=== PATIENT | female | born 1935 | race Caucasian/White ===

== ENCOUNTER 2019-02-24 13:35 | Inpatient (IN) | payer MEDICARE, OTHER ==
[2019-02-24] MEDS ORDERED: SODIUM CHLORIDE 0.9% 1,000 ML IV STA (14:45)
--- NOTE | 2019-02-24 14:49 | ED ---
General Adult HPI - General Chief complaint: Fall Stated complaint: Weakness Time Seen by Provider: 02/24/19 14:05 Source: patient, family, RN notes reviewed Mode of arrival: EMS Limitations: no limitations - History of Present Illness Initial comments: Patient is a pleasant 83-year-old female presenting to the emergency Department with complaints of generalized weakness. Majority of history is taken from family. Grandson States That He Found the Patient on the floor yesterday afternoon. He helped her up and then she was able to go to the bathroom. She did not hear from her through the night. When checking on her today he found her still in the bathroom. Patient states she does not feel weak. Patient denies any injury or any complaints. Family states patient does have dementia and her mental status is normal for her. No isolated area of weakness identified. Patient did have urinary tract infection around 3 weeks ago. No cough or dyspnea or fevers. No chest or abdominal pain. - Related Data Allergies Allergy/AdvReac Type Severity Reaction Status Date / Time No Known Allergies Allergy Verified 02/24/19 15:15 Review of Systems ROS Statement: Those systems with pertinent positive or pertinent negative responses have been documented in the HPI. ROS Other: All systems not noted in ROS Statement are negative. Constitutional: Denies: fever, chills Eyes: Denies: eye pain ENT: Denies: ear pain Respiratory: Denies: cough Cardiovascular: Denies: chest pain Endocrine: Denies: polydipsia Gastrointestinal: Denies: abdominal pain, vomiting Genitourinary: Denies: dysuria Musculoskeletal: Denies: back pain Skin: Denies: rash Neurological: Reports: as per HPI Past Medical History Past Medical History: Dementia, Hypertension Smoking Status: Never smoker Past Alcohol Use History: None Reported Past Drug Use History: None Reported General Exam Limitations: no limitations General appearance: alert, in no apparent distress Head exam: Present: normocephalic Eye exam: Present: normal appearance, PERRL, EOMI. Absent: nystagmus ENT exam: Present: normal oropharynx Neck exam: Present: normal inspection. Absent: tenderness, meningismus Respiratory exam: Present: normal lung sounds bilaterally Cardiovascular Exam: Present: regular rate, normal rhythm GI/Abdominal exam: Present: soft. Absent: distended, tenderness Extremities exam: Present: normal inspection, full ROM. Absent: tenderness Neurological exam: Present: alert, CN II-XII intact Expanded Patient oriented to: Absent: place, time Speech: Present: fluid speech Cranial nerves: EOM's Intact: Normal Motor strength exam: RUE: 5, LUE: 5, RLE: 3, LLE: 3 Eye Response: (4) open spontaneously Motor Response: (6) obeys commands Verbal Response: (4) confused conversation Psychiatric exam: Present: normal affect, normal mood Skin exam: Present: normal color Course Vital Signs 02/24/19 02/24/19 13:52 16:50 Temperature 98.3 F Pulse Rate 84 85 Respiratory 16 18 Rate Blood Pressure 169/71 162/65 O2 Sat by Pulse 95 Oximetry EKG Findings - EKG Comments: EKG Findings:: Sinus rhythm at 80. Premature atrial complexes present. AZ 194. QRS 78. QT 390. QTC 449. Normal axis. Normal QRS. No acute ST change. Medical Decision Making - Medical Decision Making Patient reevaluated and resting comfortably in bed. Patient and family updated on results and plan. Case was discussed in detail with Dr. Vinson, who will admit, covering for Dr. Murillo. - Lab Data Result diagrams: 02/24/19 14:10 02/24/19 14:10 Lab Results 02/24/19 02/24/19 02/24/19 Range/Units 14:10 14:10 14:10 WBC 13.5 H (3.8-10.6) k/uL RBC 4.62 (3.80-5.40) m/uL Hgb 14.2 (11.4-16.0) gm/dL Hct 42.6 (34.0-46.0) % MCV 92.1 (80.0-100.0) fL MCH 30.8 (25.0-35.0) pg MCHC 33.4 (31.0-37.0) g/dL RDW 12.7 (11.5-15.5) % Plt Count 275 (150-450) k/uL Neutrophils % 75 % Lymphocytes % 12 % Monocytes % 11 % Eosinophils % 1 % Basophils % 0 % Neutrophils # 10.1 H (1.3-7.7) k/uL Lymphocytes # 1.6 (1.0-4.8) k/uL Monocytes # 1.5 H (0-1.0) k/uL Eosinophils # 0.1 (0-0.7) k/uL Basophils # 0.0 (0-0.2) k/uL PT 10.7 (9.0-12.0) sec INR 1.0 (<1.2) APTT 29.2 (22.0-30.0) sec Sodium 138 (137-145) mmol/L Potassium 4.1 (3.5-5.1) mmol/L Chloride 102 (98-107) mmol/L Carbon Dioxide 24 (22-30) mmol/L Anion Gap 12 mmol/L BUN 32 H (7-17) mg/dL Creatinine 0.96 (0.52-1.04) mg/dL Est GFR (CKD-EPI)AfAm 64 (>60 ml/min/1.73 sqM) Est GFR (CKD-EPI)NonAf 55 (>60 ml/min/1.73 sqM) Glucose 104 H (74-99) mg/dL Plasma Lactic Acid Richard (0.7-2.0) mmol/L Calcium 9.4 (8.4-10.2) mg/dL Phosphorus 4.3 (2.5-4.5) mg/dL Magnesium 1.9 (1.6-2.3) mg/dL Total Bilirubin 1.4 H (0.2-1.3) mg/dL AST 31 (14-36) U/L ALT 13 (4-34) U/L Alkaline Phosphatase 96 (38-126) U/L Creatine Kinase 246 H (30-135) U/L Troponin I (0.000-0.034) ng/mL Total Protein 7.2 (6.3-8.2) g/dL Albumin 3.7 (3.5-5.0) g/dL Urine Color Urine Appearance (Clear) Urine pH (5.0-8.0) Ur Specific [place] (1.001-1.035) Urine Protein (Negative) Urine Glucose (UA) (Negative) Urine Ketones (Negative) Urine Blood (Negative) Urine Nitrite (Negative) Urine Bilirubin (Negative) Urine Urobilinogen (<2.0) mg/dL Ur Leukocyte Esterase (Negative) Urine RBC (0-5) /hpf Urine WBC (0-5) /hpf Ur Squamous Epith Cells (0-4) /hpf Amorphous Sediment (None) /hpf Urine Bacteria (None) /hpf Urine Mucus (None) /hpf 02/24/19 02/24/19 02/24/19 Range/Units 14:10 15:05 15:37 WBC (3.8-10.6) k/uL RBC (3.80-5.40) m/uL Hgb (11.4-16.0) gm/dL Hct (34.0-46.0) % MCV (80.0-100.0) fL MCH (25.0-35.0) pg MCHC (31.0-37.0) g/dL RDW (11.5-15.5) % Plt Count (150-450) k/uL Neutrophils % % Lymphocytes % % Monocytes % % Eosinophils % % Basophils % % Neutrophils # (1.3-7.7) k/uL Lymphocytes # (1.0-4.8) k/uL Monocytes # (0-1.0) k/uL Eosinophils # (0-0.7) k/uL Basophils # (0-0.2) k/uL PT (9.0-12.0) sec INR (<1.2) APTT (22.0-30.0) sec Sodium (137-145) mmol/L Potassium (3.5-5.1) mmol/L Chloride (98-107) mmol/L Carbon Dioxide (22-30) mmol/L Anion Gap mmol/L BUN (7-17) mg/dL Creatinine (0.52-1.04) mg/dL Est GFR (CKD-EPI)AfAm (>60 ml/min/1.73 sqM) Est GFR (CKD-EPI)NonAf (>60 ml/min/1.73 sqM) Glucose (74-99) mg/dL Plasma Lactic Acid Richard 1.3 (0.7-2.0) mmol/L Calcium (8.4-10.2) mg/dL Phosphorus (2.5-4.5) mg/dL Magnesium (1.6-2.3) mg/dL Total Bilirubin (0.2-1.3) mg/dL AST (14-36) U/L ALT (4-34) U/L Alkaline Phosphatase (38-126) U/L Creatine Kinase (30-135) U/L Troponin I <0.012 (0.000-0.034) ng/mL Total Protein (6.3-8.2) g/dL Albumin (3.5-5.0) g/dL Urine Color Yellow Urine Appearance Turbid H (Clear) Urine pH 5.5 (5.0-8.0) Ur Specific [place] 1.017 (1.001-1.035) Urine Protein 1+ H (Negative) Urine Glucose (UA) Negative (Negative) Urine Ketones Negative (Negative) Urine Blood Moderate H (Negative) Urine Nitrite Positive H (Negative) Urine Bilirubin Negative (Negative) Urine Urobilinogen <2.0 (<2.0) mg/dL Ur Leukocyte Esterase Large H (Negative) Urine RBC 44 H (0-5) /hpf Urine WBC 103 H (0-5) /hpf Ur Squamous Epith Cells 22 H (0-4) /hpf Amorphous Sediment Rare H (None) /hpf Urine Bacteria Many H (None) /hpf Urine Mucus Occasional H (None) /hpf - Radiology Data Radiology results: report reviewed (Computed tomography scan the brain shows chronic disease and sinusitis, no acute intercranial abnormality.), image reviewed (Pelvis and pelvis x-rays show no acute process) Disposition Clinical Impression: Urinary tract infection, Dehydration, General weakness Disposition: ADMITTED IP TO THIS HOSP Is patient prescribed a controlled substance at d/c from ED?: No Referrals: Baljinder Murillo DO [Primary Care Provider] - 1-2 days Decision Time: 17:01
[2019-02-24 15:03] LABS: Basophils % (A) 0 %; Eosinophils # (A) 0.1 k/uL (0-0.7); Eosinophils % (A) 1 %; HCT 42.6 % (34.0-46.0); HGB 14.2 gm/dL (11.4-16.0); Lymphocytes # (A) 1.6 k/uL (1.0-4.8); Lymphocytes % (A) 12 %; MCH 30.8 pg (25.0-35.0); MCHC 33.4 g/dL (31.0-37.0); MCV 92.1 fL (80.0-100.0); Mean Platelet Volume 7.8; Monocytes # (A) 1.5 k/uL (0-1.0); Monocytes % (A) 11 %; Neutrophils # (A) 10.1 k/uL (1.3-7.7); Neutrophils % (A) 75 %; Platelet Count 275 k/uL (150-450); RBC 4.62 m/uL (3.80-5.40); RDW 12.7 % (11.5-15.5); WBC 13.5 k/uL (3.8-10.6)
[2019-02-24 15:12] LABS: Partial Thromboplastin Time 29.2 sec (22.0-30.0); Prothrombin Time 10.7 sec (9.0-12.0)
[2019-02-24 15:13] LABS: Albumin 3.7 g/dL (3.5-5.0); Calcium 9.4 mg/dL (8.4-10.2); Magnesium 1.9 mg/dL (1.6-2.3); Phosphorus 4.3 mg/dL (2.5-4.5); Potassium 4.1 mmol/L (3.5-5.1); Total Bilirubin 1.4 mg/dL (0.2-1.3); Total Protein 7.2 g/dL (6.3-8.2)
[2019-02-24 15:56] LABS: Amorphous Sediment,Urine Rare /hpf; Appearance,Urine Turbid (Clear); Bacteria,Urine Many /hpf; Bilirubin,Urine Negative (Negative); Blood,Urine Moderate (Negative); Color,Urine Yellow; Glucose,Urine (UA) Negative (Negative); Ketones,Urine Negative (Negative); Leukocyte Esterase,Urine Large (Negative); Mucus,Urine Occasional /hpf; Nitrite,Urine Positive (Negative); PH, Urine 5.5 (5.0-8.0); Protein,Urine 1+ (Negative); RBC,Urine 44 /hpf (0-5); Specific Gravity,Urine 1.017 (1.001-1.035); Squamous Epithelial Cell,Urine 22 /hpf (0-4); Urobilinogen,Urine <2.0 mg/dL (<2.0); WBC,Urine 103 /hpf (0-5)
--- NOTE | 2019-02-24 16:19 | CT ---
EXAMINATION TYPE: CT brain wo con DATE OF EXAM: 02/24/2019 HISTORY: Fall injury with weakness. CT DLP: 1099.4 mGycm. Automated Exposure Control for Dose Reduction was Utilized. TECHNIQUE: CT scan of the head is performed without contrast. COMPARISON: None. FINDINGS: Slightly suboptimal as there is motion artifact degradation. There is no acute intracrania l hemorrhage or midline shift identified. There is diffuse ventricular and sulcal prominence consiste nt with diffuse age-related cerebral atrophy. There is low-attenuation in the periventricular white matter consistent with chronic small vessel ischemic change. Vascular dilatation distal internal zheng tid arteries bilaterally. Mucosal thickening and patchy opacity right sphenoid sinus and frontal sinu ses mild to moderate mucosal thickening bilateral ethmoid sinuses. Calvarium is intact. IMPRESSION: No acute intracranial hemorrhage or midline shift clearly seen. There is moderate diffu se age-related cerebral atrophy and chronic small vessel ischemic change noted. Possible acute on ch ronic paranasal sinus disease, correlate clinically.
--- NOTE | 2019-02-24 16:28 | XR ---
EXAMINATION TYPE: XR chest 2V DATE OF EXAM: 02/24/2019 COMPARISON: NONE HISTORY: Weakness. TECHNIQUE: Frontal and lateral views of the chest are obtained. FINDINGS: There is chronic parenchymal changes bilaterally without suspicious focal air space opacit y, pleural effusion, or pneumothorax seen. Basilar opacity favors chronic parenchymal change. The ca rdiac silhouette size is enlarged with atherosclerotic aorta. The osseous structures are deminerali zed. Exaggerated kyphosis is seen. IMPRESSION: Chronic changes and cardiomegaly without acute pulmonary process.
--- NOTE | 2019-02-24 16:28 | XR ---
EXAMINATION TYPE: XR pelvis AP view DATE OF EXAM: 02/24/2019 CLINICAL HISTORY: Falling injury yesterday with weakness. TECHNIQUE: A single AP view of the pelvis is obtained. COMPARISON: None. FINDINGS: There is no acute fracture/dislocation evident in the pelvis. The sacroiliac joints appea r symmetric and unremarkable. Moderate axial joint space loss both hips. Right-sided pelvic phlebolit hs and suspected vascular calcification. IMPRESSION: There is no acute displaced pelvic fracture.
[2019-02-24] MEDS ORDERED: NALOXONE 0.4 MG/ML 1 ML VIAL IV PRN (17:02)
[2019-02-24] MEDS: SODIUM CHLORIDE 0.9% 1,000 ML IV SCH (19:33)
[2019-02-24] MEDS ORDERED: ALPRAZolam 0.25 MG TAB PO PRN (21:46)
[2019-02-24] MEDS ORDERED: ACETAMINOPHEN TAB 500 MG TAB PO PRN (21:46)
[2019-02-24] MEDS ORDERED: LOSARTAN 50 MG TAB PO STA (22:27)
[2019-02-24] MEDS ORDERED: CARVEDILOL 12.5 MG TAB PO STA (22:28)
--- NOTE | 2019-02-24 22:59 | HP ---
HISTORY AND PHYSICAL CHIEF COMPLAINTS: Weakness, change in mental status and fall. HISTORY OF PRESENT ILLNESS: This 83-year-old woman with a past medical history of multiple medical problems, including dementia, hypertension, being followed by Dr. Murillo in the outpatient setting, was also being evaluated for competency. Currently the patient is noted to have multiple falls and generalized weakness. Her grandson found the patient on the floor after being there for several hours and subsequently he helped her to get up and go to the toilet, but after several hours he returned and the patient was still sitting on the toilet. The patient was taken to [facility] and admitted for further evaluation and treatment. The patient is unable to give a coherent history. The patient is confused. Most of the history is taken from my discussion with staff as well as review of the review of chart and discussion with the ER physician at this time. I also discussed the case at length with the grandson and the family at the bedside. Apparently Dr. Murillo is also following the patient closely. The patient also had a history of possible UTI with sepsis features, present on admission. PAST MEDICAL HISTORY: 1. History of hypertension. 2. History of dementia. HOME MEDICATIONS: 1. K-Dur 20 mEq p.o. daily. 2. Losartan 100 mg p.o. b.i.d. 3. Aspirin 81 mg p.o. daily. 4. Eliquis 2.5 mg b.i.d. 5. Coreg 25 mg p.o. b.i.d. ALLERGIES: NONE. FAMILY HISTORY: No history of heart disease or strokes in the family. SOCIAL HISTORY: No history of smoking. No alcohol intake. REVIEW OF SYSTEMS: Review of systems could not be taken because the patient is confused. PHYSICAL EXAMINATION: Patient is confused. Pulse 80, blood pressure 167/97, respiration 18, temperature normal, pulse ox 96% on room air. HEENT: Conjunctivae normal. Oral mucosa moist. NECK: No jugular venous distention. No carotid bruit. No lymph node enlargement. CARDIOVASCULAR SYSTEM: S1, S2 muffled. No S3. No S4. Ejection systolic murmur. RESPIRATORY SYSTEM: Breath sounds diminished at the bases. No rhonchi. No crackles. ABDOMEN: Soft, non-tender. No mass palpable. LEGS: No edema. No swelling. NERVOUS SYSTEM: Higher functions as mentioned earlier. Moves all 4 limbs. No focal motor or sensory deficit. Diffuse weakness present. LYMPHATICS: No lymph node palpable in neck, axillae or groin. JOINTS: No active deforming arthropathy. LABS: WBC 13.5. Sodium 138, potassium 4.1. Bilirubin is 1.4. UA noted. ASSESSMENT: 1. Change in mental status, possible acute metabolic encephalopathy, multifactorial. 2. Possible acute urinary tract infection with sepsis, present on admission. 3. Acute on chronic metabolic encephalopathy. 4. Weakness and fall. 5. Dementia. 6. Generalized gait dysfunction. 7. Increased white count. 8. Increased BUN. 9. Increased bilirubin. 10.History of hypertension. 11.History of dementia. 12.PACs in the EKG. 13.On Eliquis. RECOMMENDATIONS AND DISCUSSION: In this 83-year-old woman who presented with multiple complex medical issues, at this time I recommend to continue current medications, continue with symptomatic treatment. Will initiate broad-spectrum IV antibiotics. Follow the cultures. We will continue with IV fluids. The serum lactic acid is 1.3. We will continue to monitor. PT/OT evaluation. I would also recommend social worker palliative care to work on the guardianship because of the patient's possibly advanced dementia and other multiple medical issues. Once again, the prognosis is guarded. See orders for further details. Further recommendations to follow. A copy of this dictation is being forwarded to Dr. Murillo, who is the primary physician. I would recommend ECF rehab at [facility] at this time. One other family member is also working at [facility], apparently. See orders for further details. Further recommendations to follow. MMODL / IJN: [id number] /
[2019-02-25] MEDS: HYDROcodone/APAP 5-325MG 1 EACH TAB PO PRN ×2 (05:50→14:19)
[2019-02-25] MEDS: SODIUM CHLORIDE 0.9% 1,000 ML IV SCH ×2 (06:05→21:43)
[2019-02-25 06:58] LABS: Basophils % (A) 0 %; Eosinophils # (A) 0.2 k/uL (0-0.7); Eosinophils % (A) 2 %; HCT 38.5 % (34.0-46.0); HGB 12.3 gm/dL (11.4-16.0); Lymphocytes # (A) 1.8 k/uL (1.0-4.8); Lymphocytes % (A) 19 %; MCH 29.5 pg (25.0-35.0); MCHC 31.9 g/dL (31.0-37.0); MCV 92.7 fL (80.0-100.0); Mean Platelet Volume 7.6; Monocytes # (A) 1.1 k/uL (0-1.0); Monocytes % (A) 11 %; Neutrophils # (A) 6.5 k/uL (1.3-7.7); Neutrophils % (A) 66 %; Platelet Count 211 k/uL (150-450); RBC 4.16 m/uL (3.80-5.40); RDW 12.9 % (11.5-15.5); WBC 9.8 k/uL (3.8-10.6)
[2019-02-25 07:14] LABS: Calcium 8.8 mg/dL (8.4-10.2); Potassium 3.7 mmol/L (3.5-5.1)
[2019-02-25] MEDS: THIAMINE 100 MG TAB PO SCH (10:26)
[2019-02-25] MEDS: MULTIVITAMINS, THERA 1 EACH TAB PO SCH (10:26)
[2019-02-25] MEDS: HEPARIN SODIUM,PORCINE 5,000 UNIT/ML 1 ML VIAL SQ SCH ×2 (10:32→21:47)
[2019-02-25] MEDS: ASPIRIN 81 MG PO SCH (10:32)
[2019-02-25] MEDS: LOSARTAN 50 MG TAB PO SCH ×2 (10:33→21:43)
[2019-02-25] MEDS: POTASSIUM CHLORIDE ER 10 MEQ TAB.ER.PRT PO SCH (10:34)
[2019-02-25] MEDS: FOLIC ACID 1 MG TAB PO SCH (10:35)
[2019-02-25] MEDS: CARVEDILOL 12.5 MG TAB PO SCH ×2 (14:17→18:21)
[2019-02-25] MEDS ORDERED: HALOPERIDOL LACTATE 5 MG/ML 1 ML VIAL IM PRN (18:18)
--- NOTE | 2019-02-25 19:36 | PN ---
PROGRESS NOTE DATE OF SERVICE: 02/25/2019 This 83-year-old woman who was admitted with weakness and fall also had change in mental status. Patient also had significant acute UTI. The patient also had elevated WBC. The possibility of sepsis is also being considered. The patient was sitting on the toilet for a very long time, according to the family. The patient is confused. The patient is refusing some of the medications. Competency evaluation is in progress also. The patient has significant dementia. Past medical history reviewed. Review of systems could not be taken; the patient is confused. CURRENT MEDICATIONS: 1. Tylenol 500 mg q.6 p.r.n. 2. [place] 5 mg q.6 p.r.n. 3. Xanax 0.25 t.i.d. 4. Aspirin 81 mg daily. 5. Coreg 25 mg. 6. Rocephin 1 gram daily. 7. Heparin. 8. Cozaar 100 mg p.o. b.i.d. 9. Multivitamins. 10.Narcan 0.2 q.2 p.r.n. 11.K-Dur 20 mEq p.o. daily. 12.Vitamin B1 100 mg p.o. daily. PHYSICAL EXAMINATION: The patient is conscious, confused. Pulse 72, blood pressure 180/74, respirations 16, temperature 97.3, pulse ox 96% on room air. HEENT: Conjunctivae normal. Oral mucosa moist. NECK: No jugular venous distention. No carotid bruit. No lymph node enlargement. CARDIOVASCULAR SYSTEM: S1, S2 muffled. RESPIRATORY SYSTEM: Breath sounds diminished at the bases. Bilateral scattered rhonchi and crackles. ABDOMEN: Soft, obese, non-tender. LEGS: No edema. No swelling. NERVOUS SYSTEM: No focal deficit. LABS: CBC within normal limits. Sodium 138, potassium 7. UA noted. ASSESSMENT: 1. Change in mental status, possibly acute metabolic encephalopathy, multifactorial. 2. Possible acute urinary tract infection with sepsis, present on admission. 3. Acute on chronic metabolic encephalopathy. 4. Weakness and fall. 5. Dementia. 6. Generalized gait dysfunction. 7. Increased white count. 8. Increased BUN. 9. Increased bilirubin. 10.History of hypertension. 11.History of PACs on the EKG. 12.On Eliquis. RECOMMENDATIONS AND DISCUSSION: In this 83-year-old woman who presented with multiple complex medical issues, we will monitor the patient closely, continue the current medications, continue symptomatic treatment. We will initiate broad-spectrum IV antibiotics, follow the cultures. The cultures are negative so far. Otherwise, I also recommend evaluation by Psychiatry for competency evaluation. Will recommend aids social worker consultation, PT/OT evaluation, possible ECF rehab as well as determination of the legal guardianship. Once again, the prognosis is guarded. See orders for further details. Further recommendations to follow. The patient had a rash in the posterior gluteal region also. I would also recommend creatine kinase to rule out the possibility of rhabdomyolysis. MMODL / IJN: [id number] /
[2019-02-26] MEDS: HEPARIN SODIUM,PORCINE 5,000 UNIT/ML 1 ML VIAL SQ SCH ×2 (07:43→21:57)
[2019-02-26] MEDS: CARVEDILOL 12.5 MG TAB PO SCH ×2 (07:44→17:00)
[2019-02-26] MEDS: LOSARTAN 50 MG TAB PO SCH ×2 (07:44→21:56)
[2019-02-26] MEDS: POTASSIUM CHLORIDE ER 10 MEQ TAB.ER.PRT PO SCH (07:44)
[2019-02-26] MEDS: ASPIRIN 81 MG PO SCH (07:44)
[2019-02-26 09:12] LABS: Basophils % (A) 0 %; Eosinophils # (A) 0.2 k/uL (0-0.7); Eosinophils % (A) 2 %; HCT 39.8 % (34.0-46.0); HGB 13.3 gm/dL (11.4-16.0); Lymphocytes # (A) 1.4 k/uL (1.0-4.8); Lymphocytes % (A) 14 %; MCH 30.7 pg (25.0-35.0); MCHC 33.5 g/dL (31.0-37.0); MCV 91.6 fL (80.0-100.0); Mean Platelet Volume 8.1; Monocytes # (A) 0.8 k/uL (0-1.0); Monocytes % (A) 8 %; Neutrophils # (A) 7.2 k/uL (1.3-7.7); Neutrophils % (A) 73 %; Platelet Count 258 k/uL (150-450); RBC 4.34 m/uL (3.80-5.40); RDW 12.7 % (11.5-15.5); WBC 9.8 k/uL (3.8-10.6)
[2019-02-26 09:20] LABS: Calcium 9.1 mg/dL (8.4-10.2)
[2019-02-26] MEDS: SODIUM CHLORIDE 0.9% 1,000 ML IV SCH ×2 (10:41→23:10)
[2019-02-26] MEDS: MULTIVITAMINS, THERA 1 EACH TAB PO SCH (12:21)
[2019-02-26] MEDS: THIAMINE 100 MG TAB PO SCH (12:21)
[2019-02-26] MEDS: FOLIC ACID 1 MG TAB PO SCH (12:21)
--- NOTE | 2019-02-26 14:34 | P.CN ---
Psychiatric Consult - . Consult date: 02/26/19 Consult:: 02/26/19 14:20 IDENTIFYING DATA: This patient is a 83-year-old female who lives in a condo alone and has family check in on her daily, has 3 kids and is currently and retired. HISTORY OF PRESENT ILLNESS: The patient he presented to the hospital on 02/24/2019 for complaint of generalized weakness. Patient's grandson found the patient on the floor at home and allegedly help her to the bathroom however patient was not able to use the bathroom and was not able to move and was brought into the hospital. Patient has a history of dementia and UTI which was treated previously. Patient was found on blood work to have a urinary tract infection along with dehydration and elevated white blood cell count and was admitted to the medical floors. Patient had a CT of her head done on admission which showed moderate diffuse age-related cerebral atrophy and chronic small vessel changes. As per social services coordinator note claims that family is concerned about patient returning home and cannot care for herself. Psychiatry was consulted to see patient with regards to evaluation of capacity. Patient's nurse claims that patient has been somewhat restless and pulling out her IVs and having difficult time sleeping at night and continues to be confused. Patient was seen at the bedside with her granddaughter and granddaughter gave further information about patient's declining functioning in the past week and her chronic dementia for over 10 years. She states that the patient has been talking to the TV and has been much more confused in the past week and is unable to use the bathroom on her own. Patient was seen at the bedside and agreeable to speak to radio script writer. Patient was alert and oriented 1 and leave that her granddaughter was her Satinder. Patient also believed that she was in [place] at the current moment and when asked to explain further patient rambled. Patient gave many inappropriate answers to radio script writer's questions and stated that she did not know the date. Patient has a poor understanding of why she is in the hospital, stating that "I needed to get my blood pressure checked". Patient was easily distracted during the interview denies any depression or any anxiety. She claims that her sleep is "fine" and denies any pain. She claims that she has fair appetite. Patient perseverates on concepts during the interview. At this time patient denies any suicidal or homical ideations, intent or plan. Patient denies any auditory, visual hallucinations. As per granddaughter, states that patient does not use any illicit substances including cigarettes, alcohol or marijuana. PAST PSYCHIATRIC HISTORY: She has a 10 year history of dementia, has never been admitted to psychiatric hospital and denies any psychiatric outpatient follow- up. Denies any suicide attempts in the past. PAST MEDICAL HISTORY: Dementia for over 10 years, hypertension. ALLERGIES: as per EMR. CHEMICAL DEPENDENCY HISTORY: as per HPI. 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 Patient has a high school education. She is currently and retired and lives alone in a condo and has family check in on her daily. Patient has 3 kids. MENTAL STATUS EXAM: General Appearance: Patient appears to be stated age is alert, pleasant, and attempts to cooperate. Patient appears to be confused and disoriented. Patient was talking at her blankets during the interview, poor eye contact. Behavior: Patient is calmly lying in bed without any agitated behavior. Speech: Patient's speech is fluent and nonpressured. Mood/Affect: Patient reports their mood is "okay", affect is congruent and inappropriate at times. Suicidality/Homicidality: Patient denies having any suicidal or homicidal ideat ion intent or plan. Perceptions: Patient denies any auditory or visual hallucinations. Though content/process: Patient is disorganized and rambles at times, inappropriate answers to questions and is illogical. Memory and concentration: AOX1, Cannot spell "WORLD" backwards, cannot name current president, trouble identifying objects, 0 out of 3 memory recall after 5 minutes. [place] abstraction and perseverates. Poor attention span and poor judgment Judgment and insight: Chronically poor understanding of her condition and treatment, poor judgment. IMPRESSIONS: Delirium likely secondary to infection (UTI) History of Dementia PLAN: -At this time patient does NOT meet criteria for inpatient psychiatric admission. -Patient DOES NOT have decision making capacity at this time and is unable to reason through and communicate/appreciate the risks, benefits and alternatives to treatment. -Delirium precautions recommended with patient including - avoiding use of narcotics and SPECIAL INVESTIGATION UNIT INVESTIGATOR sedatives, limit anticholinergic medications when possible, frequent re-orientation, minimize use of restraints, open window shades during the day and close them at night -Would recommend the following medication changes/additions: Discontinued Xanax as patient should not be on any benzodiazepines as it will make her mental status worse. Will add Seroquel 25 mg daily at bedtime when necessary for insom naima/agitation at night. We'll also add standing order of melatonin 2 mg daily at bedtime for sleep regulation. Can continue with Haldol when necessary IM for severe agitation. -Patient's daughter is currently seeking guardianship. -Continue with possible placement at [facility] on dementia floor as patient cannot care for herself and live alone. -Continue with treatment of underlying infection to improve mental status/delirium. -Psychiatry will sign off at this point, please contact with any questions.
[2019-02-26] MEDS ORDERED: QUEtiapine 25 MG TAB PO PRN (14:35)
[2019-02-26] MEDS: HYDROcodone/APAP 5-325MG 1 EACH TAB PO PRN (17:00)
[2019-02-26] MEDS: MELATONIN 1 MG TAB PO SCH (21:56)
--- NOTE | 2019-02-27 00:15 | PN ---
PROGRESS NOTE DATE OF SERVICE: 02/26/2019 This 83-year-old woman who was admitted with change in mental status also had acute UTI. The patient is closely monitored. Psychiatry saw the patient and recommended medication adjustments. No chest pain. No palpitations. No fever. EXAM: Alert and oriented x3. Pulse 85, blood pressure 140/70, respirations 16, temperature 97.9, pulse ox 91% on room air. HEENT: Conjunctivae normal. Oral mucosa moist. NECK: No jugular venous distention. No lymph node enlargement. CARDIOVASCULAR: S1, S2. RESPIRATORY: Diminished breath sounds at the bases. No rhonchi, no crackles. ABDOMEN: Soft, nontender. LEGS: No edema, no swelling. NERVOUS SYSTEM: Diffusely weak. LABS: WBC 9.2, hemoglobin 13.3, glucose 114. UA noted and the cultures are pending at this time. ASSESSMENT: 1. Change in mental status, possible acute metabolic encephalopathy multifactorial. 2. Possible acute urinary tract infection with sepsis present on admission. 3. Acute on chronic metabolic encephalopathy. 4. Weakness and fall. 5. Dementia. 6. Generalized gait dysfunction. 7. Increased WBC. 8. Increased BUN. 9. Increased bilirubin. 10.Hypertension. 11.History of PACs in the EKG. 12.NO CODE, NO CPR, NO VENT. RECOMMENDATIONS AND DISCUSSION: This 83-year-old woman who presented with multiple complex medical issues, we will monitor the patient closely, continue the current medication, continue symptomatic treatment. Otherwise, continue the antibiotics, PT/OT evaluation, possible ECF rehab. Guarded prognosis because of multiple complex medical issues. Further recommendations to follow. MMODL / IJN: [id number] /
[2019-02-27] MEDS: CARVEDILOL 12.5 MG TAB PO SCH ×2 (05:54→17:56)
[2019-02-27] MEDS: LOSARTAN 50 MG TAB PO SCH ×2 (07:51→21:12)
[2019-02-27] MEDS: POTASSIUM CHLORIDE ER 10 MEQ TAB.ER.PRT PO SCH (07:52)
[2019-02-27] MEDS: HEPARIN SODIUM,PORCINE 5,000 UNIT/ML 1 ML VIAL SQ SCH ×2 (07:52→21:13)
[2019-02-27] MEDS: ASPIRIN 81 MG PO SCH (07:52)
[2019-02-27 08:30] LABS: Basophils % (A) 0 %; Eosinophils # (A) 0.1 k/uL (0-0.7); Eosinophils % (A) 1 %; HCT 36.8 % (34.0-46.0); HGB 12.1 gm/dL (11.4-16.0); Lymphocytes # (A) 1.6 k/uL (1.0-4.8); Lymphocytes % (A) 16 %; MCH 30.1 pg (25.0-35.0); MCHC 32.9 g/dL (31.0-37.0); MCV 91.7 fL (80.0-100.0); Mean Platelet Volume 7.6; Monocytes # (A) 0.7 k/uL (0-1.0); Monocytes % (A) 8 %; Neutrophils % (A) 73 %; Platelet Count 247 k/uL (150-450); RBC 4.01 m/uL (3.80-5.40); RDW 12.6 % (11.5-15.5); WBC 9.6 k/uL (3.8-10.6)
[2019-02-27 08:48] LABS: Calcium 8.6 mg/dL (8.4-10.2); Potassium 3.8 mmol/L (3.5-5.1)
[2019-02-27] MEDS: FOLIC ACID 1 MG TAB PO SCH (13:03)
[2019-02-27] MEDS: THIAMINE 100 MG TAB PO SCH (13:03)
[2019-02-27] MEDS: MULTIVITAMINS, THERA 1 EACH TAB PO SCH (13:03)
[2019-02-27] MEDS: SODIUM CHLORIDE 0.9% 1,000 ML IV SCH (13:03)
[2019-02-27] MEDS: DOCUSATE 100 MG CAP PO SCH (14:08)
[2019-02-27] MEDS: hydrALAZINE HCL 20 MG/ML 1 ML VIAL IVP PRN (14:51)
[2019-02-27] MEDS: amLODIPine 5 MG TAB PO SCH (17:56)
--- NOTE | 2019-02-27 18:50 | PN ---
PROGRESS NOTE DATE OF SERVICE: 02/27/2019 This 83-year-old woman who was admitted with change in mental status and possible metabolic encephalopathy also had UTI with sepsis present on admission. The patient has significant weakness also. ECF rehab is being planned. No chest pain. No palpitations. No fever. PHYSICAL EXAM: Alert and oriented x1. Pulse 89, blood pressure ( ), respirations 16, temperature normal, pulse ox 94% on room air. HEENT: Conjunctivae normal. Oral mucosa moist. NECK: No jugular venous distention. No lymph node enlargement. CARDIOVASCULAR: S1, S2. RESPIRATORY: Diminished breath sounds at the bases. Bilateral scattered rhonchi and crackles. ABDOMEN: Soft, nontender. LEGS: No edema, no swelling. NERVOUS SYSTEM: No focal deficits. LABS: At this time show CBC within normal. Sodium 135. ASSESSMENT: 1. Change in mental status, possible acute metabolic encephalopathy multifactorial. 2. Possible acute urinary tract infection present on admission. 3. Hypertension and hypertensive urgency. 4. Acute on chronic metabolic encephalopathy. 5. Weakness and fall. 6. Dementia. 7. History of generalized gait dysfunction. 8. Increased WBC. 9. Increased BUN. 10.Increased bilirubin. 11.Hypertension. 12.History of PAC in the EKG. 13.NO CODE, NO CPR, NO VENT. RECOMMENDATIONS AND DISCUSSION: I recommend to continue current medications, continue symptomatic treatment, optimize the blood pressure medications. We will add Norvasc to the current regimen. Cut down the IV fluids. Otherwise, repeat lytes. PT/OT evaluation, possible ECF rehab. Further recommendations to follow. Continue IV antibiotics. MMODL / IJN: [id number] /
[2019-02-27] MEDS: MELATONIN 1 MG TAB PO SCH (21:13)
[2019-02-28] MEDS: CARVEDILOL 12.5 MG TAB PO SCH (06:09)
--- NOTE | 2019-02-28 06:13 | CDI ---
Documentation Clarification Form Date: 02/28/2019 05:49:53 AM From: Rosa PULLIAM,CCDS, RM Admit Date: 02/25/2019 11:08:00 AM Patient Name: Debora Louis Visit Number: [id number] Discharge Date: ATTENTION: The Clinical Documentation Specialists (CDI) and [facility] Coding Staff appreciate your assistance in clarifying documentation. Please respond to the clarification below the line at the bottom and electronically sign. The CDI & [facility] Coding staff will review the response and follow-up if needed. Please note: Queries are made part of the Legal Health Record. If you have any questions, please contact the author of this message via ITS. Dr. Heydi Vinson The patient presented with the following weakness and AMS, ED notes UTI and dehydration.02/24 HP notes acute on chronic metabolic encephalopathy and possible acute UTI with sepsis present on admission with increased WBC History/Risk Factors: Severe dementia, HTN Clinical Indicators: PN 02/25 possibility of sepsis is being considered, 02/26 Possible acute UTI with sepsis present on admission .PN 02/27 notes had UTI with sepsis POA with assessment noting possible UTI present on admission, Continue IV Antibiotics WBC 13.5 >9.8 >9.6 Bili at admission 1.4 not repeated Lactic acid: 1.3 Blood cultures: No growth Urine Culture 50,000-100,000 apparent skin and or genital breanna UA ;Turbid, moderate blood, many bacteria large leukocyte esterase, positive nitrate Vitals signs on admission:Temp 98.3 P 84 rr 16-27 BP 169/71 sat 95% on room air Other Clinical Indicators: Treatment: Antibiotics: Ceftriaxone, In your professional opinion, please clarify if these findings signify one of the following conditions, whether the condition is POA, and cause, if known: Condition UTI only Sepsis ruled out UTI with sepsis Dehydration and UTI Dehydration only no infectious process Other, please specify Unable to determine Present on Admission Yes No Identify the (suspected) organism Link or clarify if there is associated (due to/with): Organ failure Shock SIRS Criteria (2 or more of the following may indicate SIRS): -Temperature < 96.8F (36C) or > 101.0F (38.3C) -Heart Rate > 90 bpm -Respiratory Rate > 20 breaths/min or PaCO2 < 32 mmHg -White Blood Cell Count > 12,000 or < 4,000 cells/mm3 or > 10% bands -Lactate >2.0 mmol/L (>4.0 is equivalent to septic shock) (Last Revision: May 2017) UTI with sepsis MTDD
[2019-02-28] MEDS: HEPARIN SODIUM,PORCINE 5,000 UNIT/ML 1 ML VIAL SQ SCH (08:57)
[2019-02-28] MEDS: DOCUSATE 100 MG CAP PO SCH (08:57)
[2019-02-28] MEDS: POTASSIUM CHLORIDE ER 10 MEQ TAB.ER.PRT PO SCH (08:57)
[2019-02-28] MEDS: hydrALAZINE HCL 20 MG/ML 1 ML VIAL IVP PRN (08:57)
[2019-02-28] MEDS: ASPIRIN 81 MG PO SCH (08:57)
[2019-02-28] MEDS: LOSARTAN 50 MG TAB PO SCH (08:57)
[2019-02-28] MEDS: amLODIPine 5 MG TAB PO SCH (08:58)
[2019-02-28] MEDS ORDERED: amLODIPine 5 MG TAB PO SCH (09:00)
[2019-02-28] MEDS ORDERED: SENNOSIDES 8.6 MG TAB PO PRN (11:15)
[2019-02-28 12:01] VITALS: BP 144/85; PULSE 85; RESP 16; TEMP 98
[2019-02-28] MEDS ORDERED: SENNOSIDES-DOCUSATE SODIUM 1 EACH TAB PO SCH (12:45)
--- NOTE | 2019-02-28 13:10 | P.DS ---
Providers Date of admission: 02/25/19 11:08 Expected date of discharge: 02/28/19 Attending physician: Heydi Vinson Consults: 02/25/19 16:27 Consult Physician Urgent Consulting Provider: Baljinder Guevara Reason/Comments: competency Do you want consulting provider notified?: Yes Primary care physician: Baljinder [facility] Course: Final diagnosis Change in mental status, possible acute metabolic encephalopathy, multifactorial Possible acute urinary tract infection, present on admission Hypertension and hypertensive urgency Acute on chronic metabolic encephalopathy Weakness and falls Dementia History of generalized gait dysfunction Increased WBC Increased BUNs and Increased bilirubin History of PAC and EKG No code, no CPR, no vent Discharge disposition Patient is being discharged in a stable condition with guarded prognosis to [facility]. Patient will follow-up with Dr. Murillo in the outpatient setting upon discharge. Patient will continue on a short course of oral antibiotics in the form of Ceftin for the next 3 days and then may discontinue. Total time taken is 35 minutes. History of present illness This is a 83-year-old female who was recently admitted for change in mental status and possible metabolic encephalopathy also had UTI with sepsis and was present on admission and was being closely monitored. During hospitalization patient continue to have significant weakness and will be going to [facility] for continued PT/OT therapy for strength and mobility. Patient has been afebrile. Patient denies any nausea or vomiting and is eating. Family was concerned as patient has not had a bowel movement and Senokot was ordered and will continue twice daily in the outpatient setting. Patient was on IV antibiotics In the form of Rocephin and will continue with short course of oral antibiotics in the form of Ceftin 500 mg twice daily for the next 3 days and then may discontinue. Patient will also continue on Norvasc 5 mg daily. Currently patient's condition is stable and is ready for discharge today. Guarded prognosis. On exam vital signs are stable. Temp is 98F, pulse is 85, respirations are 16, blood pressure is 144/85, oxygen saturation is 93% on room air. Cardio S1, S2 are muffled. Respiratory system shows diminished breath sounds at the bases with a few scattered rhonchi noted. Abdomen is soft and non-tender. Nervous system shows no focal deficits With mild diffuse weakness. Please refer to medication reconciliation sheet for a list of medications. Patient Condition at Discharge: Stable Plan - Discharge Summary Discharge Rx Participant: No New Discharge Prescriptions: New Cefuroxime Axetil [Ceftin] 500 mg PO BID 3 Days #6 tab Folic Acid 1 mg PO DAILY@1200 tab Melatonin 2 mg PO HS tab Multivitamins, Thera [Multivitamin (formulary)] 1 each PO DAILY@1200 tab amLODIPine [Norvasc] 5 mg PO DAILY tab Sennosides [Senokot] 8.6 mg PO BID PRN tab PRN Reason: Constipation QUEtiapine [SEROquel] 25 mg PO HS PRN tab PRN Reason: Delirium Acetaminophen Tab [Tylenol] 500 mg PO Q6HR PRN tab PRN Reason: Fever And/ Or Pain Thiamine [Vitamin B-1] 100 mg PO DAILY@1200 tab Continue Potassium Chloride ER [K-Dur 10] 20 meq PO DAILY Losartan Potassium 100 mg PO BID Aspirin EC [Ecotrin Low Dose] 81 mg PO DAILY Apixaban [Eliquis] 2.5 mg PO BID Carvedilol 25 mg PO BID Discharge Medication List Apixaban [Eliquis] 2.5 mg PO BID 02/24/19 [History] Aspirin EC [Ecotrin Low Dose] 81 mg PO DAILY 02/24/19 [History] Carvedilol 25 mg PO BID 02/24/19 [History] Losartan Potassium 100 mg PO BID 02/24/19 [History] Potassium Chloride ER [K-Dur 10] 20 meq PO DAILY 02/24/19 [History] Acetaminophen Tab [Tylenol] 500 mg PO Q6HR PRN tab 02/28/19 [Rx] Cefuroxime Axetil [Ceftin] 500 mg PO BID 3 Days #6 tab 02/28/19 [Rx] Folic Acid 1 mg PO DAILY@1200 tab 02/28/19 [Rx] Melatonin 2 mg PO HS tab 02/28/19 [Rx] Multivitamins, Thera [Multivitamin (formulary)] 1 each PO DAILY@1200 tab 02/28/19 [Rx] QUEtiapine [SEROquel] 25 mg PO HS PRN tab 02/28/19 [Rx] Sennosides [Senokot] 8.6 mg PO BID PRN tab 02/28/19 [Rx] Thiamine [Vitamin B-1] 100 mg PO DAILY@1200 tab 02/28/19 [Rx] amLODIPine [Norvasc] 5 mg PO DAILY tab 02/28/19 [Rx] Follow up Appointment(s)/Referral(s): Baljinder Murillo DO [Primary Care Provider] - 1-2 days Activity/Diet/Wound Care/Special Instructions: Patient is going to [facility] activity as tolerated continue current diet encourage water intake complete antibiotics until finished Discharge Disposition: TRANSFER TO SNF/ECF
[2019-02-28] MEDS: THIAMINE 100 MG TAB PO SCH (13:53)
[2019-02-28] MEDS: FOLIC ACID 1 MG TAB PO SCH (13:53)
[2019-02-28] MEDS: MULTIVITAMINS, THERA 1 EACH TAB PO SCH (13:53)
--- NOTE | 2019-02-28 13:56 | XR ---
EXAMINATION TYPE: XR knee limited LT DATE OF EXAM: 02/28/2019 COMPARISON: NONE HISTORY: Pain TECHNIQUE: Two views are submitted. FINDINGS: Severe arthropathy of the knee joint. No acute fracture. No dislocation. Vascular calcifications note d. Small suprapatellar joint effusion noted. IMPRESSION: 1. Severe osteoarthritis.
== END 2019-02-28 15:43 | DRG 871 ==
LOC: EC 13:35 → 6NMEDSUR 17:02 → OBSVTOIN 02-25 11:08 → 6NMEDSUR 02-25 16:01
PROVIDERS: ADMIT Hospitalist; ATTEND Hospitalist
DX: A41.9 Sepsis, unspecified organism (principal); G93.41 Metabolic encephalopathy; N39.0 Urinary tract infection, site not specified; E86.0 Dehydration; F03.90 Unspecified dementia, unspecified severity, without behavioral disturbance, psychotic disturbance, mood disturbance, and anxiety; I10 Essential (primary) hypertension; I16.0 Hypertensive urgency; R29.6 Repeated falls; Z79.01 Long term (current) use of anticoagulants; Z79.82 Long term (current) use of aspirin; Z79.899 Other long term (current) drug therapy; R26.9 Unspecified abnormalities of gait and mobility
CPT/HCPCS: 36415; 70450; 71046; 72170; 80048; 80053; 81001; 82550; 83605; 83735; 84100; 84484; 85025; 85610; 85730; 87040; 87086; 93005; 96361; 96365; 96366; 99285

== ENCOUNTER 2019-03-12 21:54 | Observation (INO) | payer MEDICARE, OTHER ==
[2019-03-12] MEDS ORDERED: ACETAMINOPHEN TAB 325 MG TAB PO STA (22:24)
--- NOTE | 2019-03-12 22:24 | ED ---
Fever HPI - General Chief Complaint: Fever Stated Complaint: Fever Time Seen by Provider: 03/12/19 22:00 Source: patient, EMS, RN notes reviewed Mode of arrival: EMS Limitations: altered mental status - History of Present Illness Initial Comments: This patient is an 83-year-old woman sent from [facility] to be evaluated for fever. I'm not able to obtain much history from the patient to per the transfer paperwork has history of both dementia and metabolic encephalopathy. The patient is able to state that she would like some cold water. She does answer some yes and no questions, she is able to deny having pain currently. Patient also denies dyspnea. Otherwise there is not much history I'm able to obtain from her. Transfer paperwork reveals that the patient has been having fevers since the afternoon shift at the other facility and that her appetite is decreased and she seems weaker than usual. MD Complaint: fever -: hour(s) Temperature Source: oral - Related Data Home Medications Medication Instructions Recorded Confirmed Apixaban [Eliquis] 2.5 mg PO BID 02/24/19 02/24/19 Aspirin EC [Ecotrin Low Dose] 81 mg PO DAILY 02/24/19 02/24/19 Carvedilol 25 mg PO BID 02/24/19 02/24/19 Losartan Potassium 100 mg PO BID 02/24/19 02/24/19 Potassium Chloride ER [K-Dur 10] 20 meq PO DAILY 02/24/19 02/24/19 Previous Rx's Medication Instructions Recorded Acetaminophen Tab [Tylenol] 500 mg PO Q6HR PRN tab 02/28/19 Cefuroxime Axetil [Ceftin] 500 mg PO BID 3 Days #6 tab 02/28/19 Folic Acid 1 mg PO DAILY@1200 tab 02/28/19 Melatonin 2 mg PO HS tab 02/28/19 Multivitamins, Thera [Multivitamin 1 each PO DAILY@1200 tab 02/28/19 (formulary)] QUEtiapine [SEROquel] 25 mg PO HS PRN tab 02/28/19 Sennosides [Senokot] 8.6 mg PO BID PRN tab 02/28/19 Thiamine [Vitamin B-1] 100 mg PO DAILY@1200 tab 02/28/19 amLODIPine [Norvasc] 5 mg PO DAILY tab 02/28/19 Ciprofloxacin HCl [Cipro] 500 mg PO Q12HR #14 tablet 03/13/19 Allergies Allergy/AdvReac Type Severity Reaction Status Date / Time No Known Allergies Allergy Verified 03/12/19 22:03 Review of Systems ROS Statement: Those systems with pertinent positive or pertinent negative responses have been documented in the HPI. ROS Other: All systems not noted in ROS Statement are negative. Limitations: ROS unobtainable due to patients medical condition (As above) Constitutional: Reports: as per HPI, fever Respiratory: Denies: dyspnea Cardiovascular: Denies: chest pain Gastrointestinal: Denies: abdominal pain, vomiting Musculoskeletal: Denies: back pain Neurological: Denies: headache Past Medical History Past Medical History: Dementia, Hypertension History of Any Multi-Drug Resistant Organisms: None Reported Past Surgical History: No Surgical Hx Reported Past Anesthesia/Blood Transfusion Reactions: No Reported Reaction Past Psychological History: No Psychological Hx Reported Smoking Status: Never smoker Past Alcohol Use History: None Reported Past Drug Use History: None Reported General Exam Limitations: altered mental status General appearance: alert Head exam: Present: atraumatic, normocephalic Eye exam: Present: normal appearance. Absent: scleral icterus, conjunctival injection ENT exam: Present: mucous membranes dry Neck exam: Present: full ROM. Absent: tenderness, meningismus Respiratory exam: Present: rhonchi. Absent: respiratory distress, wheezes, rales, stridor, accessory muscle use Cardiovascular Exam: Present: normal rhythm, tachycardia, normal heart sounds. Absent: systolic murmur, diastolic murmur, rubs, gallop GI/Abdominal exam: Present: soft. Absent: tenderness, guarding, rebound, rigid, mass Extremities exam: Present: normal inspection, normal capillary refill. Absent: pedal edema, calf tenderness Neurological exam: Present: alert Skin exam: Present: warm, dry, intact, normal color. Absent: rash Course Vital Signs 03/12/19 03/12/19 03/13/19 21:57 23:39 01:30 Temperature 101.5 F H Pulse Rate 102 H 87 75 Respiratory 18 18 21 Rate Blood Pressure 159/70 128/55 O2 Sat by Pulse 92 L 92 L 86 L Oximetry 03/13/19 03/13/19 03/13/19 01:44 02:00 02:33 Temperature 97.7 F Pulse Rate 75 Respiratory 21 21 Rate Blood Pressure O2 Sat by Pulse 95 95 Oximetry Medical Decision Making - Medical Decision Making This patient is an 83-year-old woman from long term for evaluation of fever and generalized weakness. Patient given fluids and IV antibiotics. There does appear to be urinary tract infection. I discussed admission with the patient and her daughter but at this point they would rather return to long term, with anterior antibiotics. Will start with ciprofloxacin and adjusted based on culture results. While the patient was waiting for discharge, she did have some mild dyspnea and oxygen saturations were low. We'll admit patient for further fluids and antibiotics to ensure that the saturations returned to normal. - Lab Data Result diagrams: 03/12/19 22:15 03/12/19 22:15 Lab Results 03/12/19 03/12/19 03/12/19 Range/Units 22:05 22: 22:15 WBC 9.0 (3.8-10.6) k/uL RBC 3.88 (3.80-5.40) m/uL Hgb 11.9 (11.4-16.0) gm/dL Hct 35.0 (34.0-46.0) % MCV 90.2 (80.0-100.0) fL MCH 30.7 (25.0-35.0) pg MCHC 34.0 (31.0-37.0) g/dL RDW 12.7 (11.5-15.5) % Plt Count 291 (150-450) k/uL Neutrophils % 89 % Lymphocytes % 7 % Monocytes % 2 % Eosinophils % 1 % Basophils % 1 % Neutrophils # 8.0 H (1.3-7.7) k/uL Lymphocytes # 0.6 L (1.0-4.8) k/uL Monocytes # 0.2 (0-1.0) k/uL Eosinophils # 0.1 (0-0.7) k/uL Basophils # 0.1 (0-0.2) k/uL PT (9.0-12.0) sec INR (<1.2) APTT (22.0-30.0) sec Sodium 137 (137-145) mmol/L Potassium 3.9 (3.5-5.1) mmol/L Chloride 100 (98-107) mmol/L Carbon Dioxide 29 (22-30) mmol/L Anion Gap 8 mmol/L BUN 26 H (7-17) mg/dL Creatinine 1.62 H (0.52-1.04) mg/dL Est GFR (CKD-EPI)AfAm 34 (>60 ml/min/1.73 sqM) Est GFR (CKD-EPI)NonAf 29 (>60 ml/min/1.73 sqM) Glucose 130 H (74-99) mg/dL Plasma Lactic Acid Richard (0.7-2.0) mmol/L Calcium 7.6 L (8.4-10.2) mg/dL Total Bilirubin 0.5 (0.2-1.3) mg/dL AST 34 (14-36) U/L ALT 15 (4-34) U/L Alkaline Phosphatase 79 (38-126) U/L Troponin I (0.000-0.034) ng/mL Total Protein 5.7 L (6.3-8.2) g/dL Albumin 2.7 L (3.5-5.0) g/dL Urine Color Yellow Urine Appearance Cloudy H (Clear) Urine pH 7.0 (5.0-8.0) Ur Specific [place] 1.014 (1.001-1.035) Urine Protein 1+ H (Negative) Urine Glucose (UA) Negative (Negative) Urine Ketones Negative (Negative) Urine Blood Moderate H (Negative) Urine Nitrite Negative (Negative) Urine Bilirubin Negative (Negative) Urine Urobilinogen 2.0 (<2.0) mg/dL Ur Leukocyte Esterase Large H (Negative) Urine RBC 155 H (0-5) /hpf Urine WBC 31 H (0-5) /hpf Ur Squamous Epith Cells 3 (0-4) /hpf Urine Bacteria Occasional H (None) /hpf Hyaline Casts 3 H (0-2) /lpf Urine Mucus Rare H (None) /hpf Influenza Type A RNA (Not Detectd) Influenza Type B (PCR) (Not Detectd) 03/12/19 03/12/19 03/12/19 Range/Units 22:15 22:15 22:15 WBC (3.8-10.6) k/uL RBC (3.80-5.40) m/uL Hgb (11.4-16.0) gm/dL Hct (34.0-46.0) % MCV (80.0-100.0) fL MCH (25.0-35.0) pg MCHC (31.0-37.0) g/dL RDW (11.5-15.5) % Plt Count (150-450) k/uL Neutrophils % % Lymphocytes % % Monocytes % % Eosinophils % % Basophils % % Neutrophils # (1.3-7.7) k/uL Lymphocytes # (1.0-4.8) k/uL Monocytes # (0-1.0) k/uL Eosinophils # (0-0.7) k/uL Basophils # (0-0.2) k/uL PT 12.4 H (9.0-12.0) sec INR 1.2 H (<1.2) APTT 29.7 (22.0-30.0) sec Sodium (137-145) mmol/L Potassium (3.5-5.1) mmol/L Chloride (98-107) mmol/L Carbon Dioxide (22-30) mmol/L Anion Gap mmol/L BUN (7-17) mg/dL Creatinine (0.52-1.04) mg/dL Est GFR (CKD-EPI)AfAm (>60 ml/min/1.73 sqM) Est GFR (CKD-EPI)NonAf (>60 ml/min/1.73 sqM) Glucose (74-99) mg/dL Plasma Lactic Acid Richard 1.2 (0.7-2.0) mmol/L Calcium (8.4-10.2) mg/dL Total Bilirubin (0.2-1.3) mg/dL AST (14-36) U/L ALT (4-34) U/L Alkaline Phosphatase (38-126) U/L Troponin I 0.024 (0.000-0.034) ng/mL Total Protein (6.3-8.2) g/dL Albumin (3.5-5.0) g/dL Urine Color Urine Appearance (Clear) Urine pH (5.0-8.0) Ur Specific [place] (1.001-1.035) Urine Protein (Negative) Urine Glucose (UA) (Negative) Urine Ketones (Negative) Urine Blood (Negative) Urine Nitrite (Negative) Urine Bilirubin (Negative) Urine Urobilinogen (<2.0) mg/dL Ur Leukocyte Esterase (Negative) Urine RBC (0-5) /hpf Urine WBC (0-5) /hpf Ur Squamous Epith Cells (0-4) /hpf Urine Bacteria (None) /hpf Hyaline Casts (0-2) /lpf Urine Mucus (None) /hpf Influenza Type A RNA (Not Detectd) Influenza Type B (PCR) (Not Detectd) 03/12/19 Range/Units 23:00 WBC (3.8-10.6) k/uL RBC (3.80-5.40) m/uL Hgb (11.4-16.0) gm/dL Hct (34.0-46.0) % MCV (80.0-100.0) fL MCH (25.0-35.0) pg MCHC (31.0-37.0) g/dL RDW (11.5-15.5) % Plt Count (150-450) k/uL Neutrophils % % Lymphocytes % % Monocytes % % Eosinophils % % Basophils % % Neutrophils # (1.3-7.7) k/uL Lymphocytes # (1.0-4.8) k/uL Monocytes # (0-1.0) k/uL Eosinophils # (0-0.7) k/uL Basophils # (0-0.2) k/uL PT (9.0-12.0) sec INR (<1.2) APTT (22.0-30.0) sec Sodium (137-145) mmol/L Potassium (3.5-5.1) mmol/L Chloride (98-107) mmol/L Carbon Dioxide (22-30) mmol/L Anion Gap mmol/L BUN (7-17) mg/dL Creatinine (0.52-1.04) mg/dL Est GFR (CKD-EPI)AfAm (>60 ml/min/1.73 sqM) Est GFR (CKD-EPI)NonAf (>60 ml/min/1.73 sqM) Glucose (74-99) mg/dL Plasma Lactic Acid Richard (0.7-2.0) mmol/L Calcium (8.4-10.2) mg/dL Total Bilirubin (0.2-1.3) mg/dL AST (14-36) U/L ALT (4-34) U/L Alkaline Phosphatase (38-126) U/L Troponin I (0.000-0.034) ng/mL Total Protein (6.3-8.2) g/dL Albumin (3.5-5.0) g/dL Urine Color Urine Appearance (Clear) Urine pH (5.0-8.0) Ur Specific [place] (1.001-1.035) Urine Protein (Negative) Urine Glucose (UA) (Negative) Urine Ketones (Negative) Urine Blood (Negative) Urine Nitrite (Negative) Urine Bilirubin (Negative) Urine Urobilinogen (<2.0) mg/dL Ur Leukocyte Esterase (Negative) Urine RBC (0-5) /hpf Urine WBC (0-5) /hpf Ur Squamous Epith Cells (0-4) /hpf Urine Bacteria (None) /hpf Hyaline Casts (0-2) /lpf Urine Mucus (None) /hpf Influenza Type A RNA Not Detected (Not Detectd) Influenza Type B (PCR) Not Detected (Not Detectd) - EKG Data -: EKG Interpreted by [place] EKG shows normal: axis (Normal), intervals (Normal) Rate: tachycardia (Rate 101.) Interpretation: LVH, other (Underlying rhythm appears to be atrial fibrillation.) Disposition Clinical Impression: Urinary tract infection, Dehydration Disposition: ADMITTED IP TO THIS HOSP Condition: Good Instructions (If sedation given, give patient instructions): Dehydration (ED), Urinary Tract Infection in Women (ED) Prescriptions: Ciprofloxacin HCl [Cipro] 500 mg PO Q12HR #14 tablet Is patient prescribed a controlled substance at d/c from ED?: No Referrals: Baljinder Murillo DO [Primary Care Provider] - 1-2 days
[2019-03-12 22:40] LABS: Basophils # (A) 0.1 k/uL (0-0.2); Basophils % (A) 1 %; Eosinophils # (A) 0.1 k/uL (0-0.7); Eosinophils % (A) 1 %; HGB 11.9 gm/dL (11.4-16.0); Lymphocytes # (A) 0.6 k/uL (1.0-4.8); Lymphocytes % (A) 7 %; MCH 30.7 pg (25.0-35.0); MCV 90.2 fL (80.0-100.0); Mean Platelet Volume 7.5; Monocytes # (A) 0.2 k/uL (0-1.0); Monocytes % (A) 2 %; Neutrophils % (A) 89 %; Platelet Count 291 k/uL (150-450); RBC 3.88 m/uL (3.80-5.40); RDW 12.7 % (11.5-15.5)
[2019-03-12] MEDS ORDERED: SODIUM CHLORIDE 0.9% 1,600 ML IV ONE (22:42)
[2019-03-12 22:43] LABS: Appearance,Urine Cloudy (Clear); Bacteria,Urine Occasional /hpf; Bilirubin,Urine Negative (Negative); Blood,Urine Moderate (Negative); Color,Urine Yellow; Glucose,Urine (UA) Negative (Negative); Hyaline Casts,Urine 3 /lpf (0-2); Ketones,Urine Negative (Negative); Leukocyte Esterase,Urine Large (Negative); Mucus,Urine Rare /hpf; Nitrite,Urine Negative (Negative); Protein,Urine 1+ (Negative); RBC,Urine 155 /hpf (0-5); Specific Gravity,Urine 1.014 (1.001-1.035); Squamous Epithelial Cell,Urine 3 /hpf (0-4); WBC,Urine 31 /hpf (0-5)
[2019-03-12 22:50] LABS: Albumin 2.7 g/dL (3.5-5.0); Calcium 7.6 mg/dL (8.4-10.2); Potassium 3.9 mmol/L (3.5-5.1); Total Bilirubin 0.5 mg/dL (0.2-1.3); Total Protein 5.7 g/dL (6.3-8.2)
[2019-03-12 23:01] LABS: INR 1.2 (<1.2); Partial Thromboplastin Time 29.7 sec (22.0-30.0); Prothrombin Time 12.4 sec (9.0-12.0)
--- NOTE | 2019-03-12 23:18 | XR ---
EXAMINATION TYPE: XR chest 1V portable DATE OF EXAM: 03/12/2019 COMPARISON: 02/24/2019 HISTORY: Fever TECHNIQUE: FINDINGS: Heart is enlarged. There is no gross heart failure. There is some coarsening of the lung ma rkings at the lung bases. There are chest leads. IMPRESSION: Cardiomegaly. Mild fibrotic changes. No heart failure seen. No adverse change compared to last exam. There is probably some mild atelectasis at the lung bases unchanged.
[2019-03-13] MEDS ORDERED: SODIUM CHLORIDE 0.9% 500 ML 500 ML IV STA (00:15)
[2019-03-13] MEDS ORDERED: SENNOSIDES 8.6 MG TAB PO PRN (01:44)
[2019-03-13] MEDS ORDERED: ACETAMINOPHEN TAB 500 MG TAB PO PRN (01:44)
[2019-03-13] MEDS ORDERED: QUEtiapine 25 MG TAB PO PRN (01:44)
[2019-03-13] MEDS: CARVEDILOL 12.5 MG TAB PO SCH ×2 (09:00→17:11)
[2019-03-13] MEDS: APIXABAN 2.5 MG TABLET PO SCH ×2 (09:00→20:15)
[2019-03-13] MEDS ORDERED: LOSARTAN 50 MG TAB PO SCH (09:00)
[2019-03-13] MEDS ORDERED: FAMOTIDINE 20 MG/2 ML VIAL IV SCH (09:00)
[2019-03-13] MEDS: ASPIRIN 81 MG PO SCH (09:00)
[2019-03-13] MEDS: FOLIC ACID 1 MG TAB PO SCH (09:01)
[2019-03-13] MEDS: POTASSIUM CHLORIDE ER 10 MEQ TAB.ER.PRT PO SCH (09:01)
[2019-03-13] MEDS: amLODIPine 5 MG TAB PO SCH (09:01)
[2019-03-13] MEDS: MULTIVITAMINS, THERA 1 EACH TAB PO SCH (09:01)
[2019-03-13] MEDS: THIAMINE 100 MG TAB PO SCH (09:01)
[2019-03-13] MEDS ORDERED: FOLIC ACID 1 MG TAB PO SCH (10:30)
--- NOTE | 2019-03-13 20:02 | P.HPIM ---
History of Present Illness H&P Date: 03/13/19 Chief Complaint: Fevers History of presenting complaint: This is a pleasant 83-year-old patient of Dr. Murillo who is a resident of [facility]. No uses of each to get about. Chronic stable medical conditions include dementia, hypertension medical debility. Hypertension. Patient was recently the hospital and discharged on February 28. She doesn't have a diagnosis of UTI and metabolic encephalopathy. Patient another normal. Creatinine of 20/60.96. Patient's labwork from generally seventh revealed a bun of 40 creatinine of 2.82. On generally patient was discharged on Ceftin. Patient now presents to the ER. In the was found to have urinary retention. Sneed catheter was placed. Urine came back to the infected appearing. Appetite is gone down. Patient denies any cough. Her patient is found to have some fever and tachycardia. Appetite has been okay. Patient has significant dementia. Occasionally recognizes the family. Appetite is gone down. Patient was started on antibiotics in the ER. Admitting review of systems difficult to obtain as patient is a poor historian. Presently confused. Additional history is obtained with the daughter the bedside Past medical history to include: Advanced dementia, hypertension, medical debility Social history: At [facility], using a wheelchair, no smoking or alcohol Family history: Reviewed, noncontributory to presentation Physical examination: VITAL SIGNS: 101.5, 102, 18, 159/70, 92% room air GENERAL: BMI 30.2, propped up in bed comfortable. EYES: Pupils equal. Conjunctiva normal. HEENT: External appearance of nose and ears normal, oral cavity grossly normal, wearing nasal cannula. NECK: JVD not raised; masses not palpable. HEART: First and second heart sounds are normal; no edema. LUNGS: Respiratory rate normal; clear to auscultation. ABDOMEN: Soft, nontender, liver spleen not palpable, no masses palpable. PSYCH: [Pleasantly confused l. MUSCULOSKELETAL: Evidence of OA NEUROLOGICAL: Cranial nerves grossly intact; no facial asymmetry, power and sensation grossly intact. 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 Patient also was on Bactrim as an outpatient. -Major cognitive impairment probably from late onset Alzheimer's dementia -Medical debility uses a wheelchair -Hypoalbuminemia has an acute phase reactant Plan: At this point, will continue to patient on ceftriaxone. Urine cultures pending. Home medications resumed. Given that he is renal failure we'll hold off the Cozaar. Keep IV fluids going. Care was discussed with the patient's daughter and granddaughter at bedside. Questions were answered. Encourage oral intake. Repeat labs in the morning. For the antibiotic will be determined on the culture results. We'll also repeat electrolytes Lovenox for DVT prophylaxis.. Past Medical History Past Medical History: Dementia, Hypertension History of Any Multi-Drug Resistant Organisms: None Reported Past Surgical History: No Surgical Hx Reported Past Anesthesia/Blood Transfusion Reactions: No Reported Reaction Past Psychological History: No Psychological Hx Reported Smoking Status: Never smoker Past Alcohol Use History: None Reported Past Drug Use History: None Reported - Past Family History Father Family Medical History: Unable to Obtain Medications and Allergies Home Medications Medication Instructions Recorded Confirmed Type Apixaban [Eliquis] 2.5 mg PO BID 02/24/19 03/13/19 History Aspirin EC [Ecotrin Low Dose] 81 mg PO DAILY 02/24/19 03/13/19 History Carvedilol 25 mg PO BID 02/24/19 03/13/19 History Losartan Potassium 100 mg PO BID 02/24/19 03/13/19 History Potassium Chloride ER [K-Dur 10] 20 meq PO DAILY 02/24/19 03/13/19 History Acetaminophen Tab [Tylenol] 500 mg PO Q6HR PRN tab 02/28/19 03/13/19 Rx Melatonin 2 mg PO HS tab 02/28/19 03/13/19 Rx QUEtiapine [SEROquel] 25 mg PO HS PRN tab 02/28/19 03/13/19 Rx Sennosides [Senokot] 8.6 mg PO BID PRN tab 02/28/19 03/13/19 Rx Thiamine [Vitamin B-1] 100 mg PO DAILY@1200 tab 02/28/19 03/13/19 Rx amLODIPine [Norvasc] 5 mg PO DAILY tab 02/28/19 03/13/19 Rx Ciprofloxacin HCl [Cipro] 500 mg PO Q12HR #14 tablet 03/13/19 Rx Folic Acid 0.8 mg PO DAILY 03/13/19 03/13/19 History Multivitamins, Thera [Multivitamin 1 tab PO DAILY 03/13/19 03/13/19 History (formulary)] Sulfamethox-Tmp 800-160Mg [Bactrim 1 tab PO Q12HR 03/13/19 03/13/19 History DS 800-160 mg] Allergies Allergy/AdvReac Type Severity Reaction Status Date / Time No Known Allergies Allergy Verified 03/13/19 08:01 Physical Exam Vitals: Vital Signs Temp Pulse Pulse Resp BP BP Pulse Ox 03/13/19 16:00 82 17 03/13/19 15:00 98.1 F 82 17 141/61 93 L 03/13/19 11:46 98.1 F 82 18 141/61 93 L 03/13/19 08:00 82 18 03/13/19 07:00 99.3 F 72 18 124/62 88 L 03/13/19 02:33 97.7 F 03/13/19 02:00 75 21 95 03/13/19 01:44 21 95 03/13/19 01:30 75 21 128/55 86 L 03/12/19 23:39 87 18 92 L 03/12/19 21:57 101.5 F H 102 H 18 159/70 92 L Intake and Output 03/13/19 03/13/19 03/13/19 06:59 14:59 22:59 Intake Total 1630 20 Output Total 200 1100 Balance -200 1630 -1080 Intake: Intake, IV Titration 550 Amount Sodium Chloride 0.9% 500 500 ml 500 ml @ 1000 mls/hr IV .Q30M STA Rx#: [id number] cefTRIAXone 1 gm In 50 Sodium Chloride 0.9% 50 ml @ 100 mls/hr IVPB ONCE STA Rx#:[id number] Oral 1080 20 Output: Urine 200 1100 Other: Voiding Method Indwelling Catheter Indwelling Catheter Weight 74.843 kg Results CBC & Chem 7: 03/12/19 22:15 03/12/19 22:15 Labs: Abnormal Lab Results - Last 24 Hours (Table) 03/12/19 03/12/19 03/12/19 Range/Units 22:05 22:15 22:15 Neutrophils # 8.0 H (1.3-7.7) k/uL Lymphocytes # 0.6 L (1.0-4.8) k/uL PT (9.0-12.0) sec INR (<1.2) BUN 26 H (7-17) mg/dL Creatinine 1.62 H (0.52-1.04) mg/dL Glucose 130 H (74-99) mg/dL Calcium 7.6 L (8.4-10.2) mg/dL Total Protein 5.7 L (6.3-8.2) g/dL Albumin 2.7 L (3.5-5.0) g/dL Urine Appearance Cloudy H (Clear) Urine Protein 1+ H (Negative) Urine Blood Moderate H (Negative) Ur Leukocyte Esterase Large H (Negative) Urine RBC 155 H (0-5) /hpf Urine WBC 31 H (0-5) /hpf Urine Bacteria Occasional H (None) /hpf Hyaline Casts 3 H (0-2) /lpf Urine Mucus Rare H (None) /hpf 03/12/19 Range/Units 22:15 Neutrophils # (1.3-7.7) k/uL Lymphocytes # (1.0-4.8) k/uL PT 12.4 H (9.0-12.0) sec INR 1.2 H (<1.2) BUN (7-17) mg/dL Creatinine (0.52-1.04) mg/dL Glucose (74-99) mg/dL Calcium (8.4-10.2) mg/dL Total Protein (6.3-8.2) g/dL Albumin (3.5-5.0) g/dL Urine Appearance (Clear) Urine Protein (Negative) Urine Blood (Negative) Ur Leukocyte Esterase (Negative) Urine RBC (0-5) /hpf Urine WBC (0-5) /hpf Urine Bacteria (None) /hpf Hyaline Casts (0-2) /lpf Urine Mucus (None) /hpf Microbiology - Last 24 Hours (Table) 03/12/19 22:05 Urine Culture - Preliminary Urine,Catheterized Thrombosis Risk Factor Assmnt - Choose All That Apply Each Factor Represents 1 point: Medical pt on bed rest, Obesity (BMI >25) Each Risk Factor Represents 3 Points: Age 75 years or older Thrombosis Risk Factor Assessment Total Risk Factor Score: 5 Thrombosis Risk Factor Assessment Level: High Risk
[2019-03-13] MEDS: SODIUM CHLORIDE 0.9% 1,000 ML IV SCH (20:15)
[2019-03-13] MEDS ORDERED: MELATONIN 1 MG TAB PO SCH (21:00)
[2019-03-14] MEDS ORDERED: LEVOFLOXACIN 750MG-D5W PMX 750 MG in DEXTROSE/WATER 1 150ML.BAG IVPB SCH (01:45)
[2019-03-14] MEDS: SODIUM CHLORIDE 0.9% 1,000 ML IV SCH ×2 (06:01→13:30)
[2019-03-14 07:49] LABS: Calcium 7.6 mg/dL (8.4-10.2); Potassium 3.6 mmol/L (3.5-5.1)
[2019-03-14] MEDS ORDERED: FAMOTIDINE 20 MG TAB PO SCH (09:00)
[2019-03-14] MEDS: POTASSIUM CHLORIDE ER 10 MEQ TAB.ER.PRT PO SCH (10:13)
[2019-03-14] MEDS: MULTIVITAMINS, THERA 1 EACH TAB PO SCH (10:13)
[2019-03-14] MEDS: CARVEDILOL 12.5 MG TAB PO SCH (10:17)
[2019-03-14] MEDS: APIXABAN 2.5 MG TABLET PO SCH (10:17)
[2019-03-14] MEDS: FOLIC ACID 1 MG TAB PO SCH (10:18)
[2019-03-14] MEDS: amLODIPine 5 MG TAB PO SCH (10:18)
[2019-03-14] MEDS: ASPIRIN 81 MG PO SCH (10:18)
[2019-03-14] MEDS: THIAMINE 100 MG TAB PO SCH (10:18)
[2019-03-14 12:07] VITALS: BP 152/73; PULSE 71; RESP 17; TEMP 97.5
[2019-03-14] MEDS ORDERED: LOSARTAN 50 MG TAB PO STA (12:07)
--- NOTE | 2019-03-14 12:13 | P.DS ---
Providers Date of admission: 03/13/19 01:42 Expected date of discharge: 03/14/19 Attending physician: Cuauhtemoc Lynne Primary care physician: Baljinder Murillo [facility] Course: Hospital course: This is a pleasant 83-year-old patient of Dr. Murillo who is a resident of [facility]. Chronic stable medical conditions include dementia, hypertension medical debility. Patient was recently in the hospital and discharged on February 28. She did have a diagnosis of UTI and metabolic encephalopathy. Creatinine of 20/0.96. Patient's labwork from March 04 revealed a bun of 40 creatinine of 2.82. On February 28 patient was discharged on Ceftin. Patient now presents to the ER. In the EC was found to have urinary retention. Sneed catheter was placed. Urine came back to the infected appearing. Appetite is gone down. Patient denies any cough. Her patient is found to have some fever and tachycardia. Appetite has been okay. Patient has significant dementia. Occasionally recognizes the family. Appetite is gone down. Patient was started on antibiotics in the ER. Patient started and IV ceftriaxone. Being switched to ampicillin for discharge. Also given IV fluids. Creatinine that was 1.6 to admission down to 1.08 this morning. Appetite stable. Physical examination: VITAL SIGNS: 97.5, 71, 17, 152/73, 93% room air GENERAL: Propped up in bed, comfortable. EYES: Pupils equal. Conjunctiva normal. HEENT: External appearance of nose and ears normal, oral cavity grossly normal, wearing nasal cannula. NECK: JVD not raised; masses not palpable. HEART: First and second heart sounds are normal; no edema. LUNGS: Respiratory rate normal; clear to auscultation. ABDOMEN: Soft, nontender, liver spleen not palpable, no masses palpable. PSYCH: [Pleasantly confused l. MUSCULOSKELETAL: Evidence of OA INVESTIGATIONS, reviewed in the clinical context: Potassium 3.6 bun 25 creatinine 1.08 Previous testing White count 9 hemoglobin 11.9 potassium 3.9 bun 26 creatinine 1.6 to Labs from 03/04/2019 include 10 48 creatinine 2.82 Labs from generally second show a bun of 20 and a creatinine 0.96 UA positive for leukoesterase, WBC Assessment: -Acute UTI from cystitis, from enterococcus group D recurrent, causing sepsis, POA -Acute kidney injury could be ATN with creatinine being normal back on generally second when going up to 2.82 on generally seventh currently 1.6 to. Patient also was on Bactrim as an outpatient. -Major cognitive impairment probably from late onset Alzheimer's dementia -Medical debility uses a wheelchair -Hypoalbuminemia has an acute phase reactant [facility]: [facility] Patient Condition at Discharge: Stable Plan - Discharge Summary New Discharge Prescriptions: New Ampicillin Trihydrate 250 mg PO QID #40 capsule Continue Aspirin EC [Ecotrin Low Dose] 81 mg PO DAILY Apixaban [Eliquis] 2.5 mg PO BID Carvedilol 25 mg PO BID Melatonin 2 mg PO HS tab amLODIPine [Norvasc] 5 mg PO DAILY tab Sennosides [Senokot] 8.6 mg PO BID PRN tab PRN Reason: Constipation Acetaminophen Tab [Tylenol] 500 mg PO Q6HR PRN tab PRN Reason: Fever And/ Or Pain Thiamine [Vitamin B-1] 100 mg PO DAILY@1200 tab Multivitamins, Thera [Multivitamin (formulary)] 1 tab PO DAILY Folic Acid 0.8 mg PO DAILY QUEtiapine [SEROquel] 25 mg PO HS PRN #3 tab PRN Reason: Delirium Changed Losartan Potassium 50 mg PO BID #0 Discontinued Potassium Chloride ER [K-Dur 10] 20 meq PO DAILY Sulfamethox-Tmp 800-160Mg [Bactrim DS 800-160 mg] 1 tab PO Q12HR Discharge Medication List Apixaban [Eliquis] 2.5 mg PO BID 02/24/19 [History] Aspirin EC [Ecotrin Low Dose] 81 mg PO DAILY 02/24/19 [History] Carvedilol 25 mg PO BID 02/24/19 [History] Acetaminophen Tab [Tylenol] 500 mg PO Q6HR PRN tab 02/28/19 [Rx] Melatonin 2 mg PO HS tab 02/28/19 [Rx] Sennosides [Senokot] 8.6 mg PO BID PRN tab 02/28/19 [Rx] Thiamine [Vitamin B-1] 100 mg PO DAILY@1200 tab 02/28/19 [Rx] amLODIPine [Norvasc] 5 mg PO DAILY tab 02/28/19 [Rx] Folic Acid 0.8 mg PO DAILY 03/13/19 [History] Multivitamins, Thera [Multivitamin (formulary)] 1 tab PO DAILY 03/13/19 [History] Ampicillin Trihydrate 250 mg PO QID #40 capsule 03/14/19 [Rx] Losartan Potassium 50 mg PO BID #0 03/14/19 [Rx] QUEtiapine [SEROquel] 25 mg PO HS PRN #3 tab 03/14/19 [Rx] Follow up Appointment(s)/Referral(s): Baljinder Murillo DO [Primary Care Provider] - 1-2 days Patient Instructions/Handouts: Dehydration (ED), Urinary Tract Infection in Women (ED)
[2019-03-14] MEDS ORDERED: AMOXICILLIN 250 MG CAP PO SCH (12:30)
== END 2019-03-14 16:55 ==
LOC: EC 21:54 → EEVIPCON 21:54 → 5NMEDONC 03-13 01:42
PROVIDERS: ADMIT Hospitalist; ATTEND Hospitalist
DX: N30.00 Acute cystitis without hematuria (principal); B95.2 Enterococcus as the cause of diseases classified elsewhere; E86.0 Dehydration; I10 Essential (primary) hypertension; N17.9 Acute kidney failure, unspecified; F03.90 Unspecified dementia, unspecified severity, without behavioral disturbance, psychotic disturbance, mood disturbance, and anxiety; R53.81 Other malaise; E88.09 Other disorders of plasma-protein metabolism, not elsewhere classified; Z99.3 Dependence on wheelchair; Z79.01 Long term (current) use of anticoagulants; Z79.82 Long term (current) use of aspirin; Z79.899 Other long term (current) drug therapy
CPT/HCPCS: 96361; 96375; 96365; 99285; 36415; 93005; 97163; 97535; 97167; 80053; 80048; 83605; 84484; 85025; 85610; 85730; 81001; 87040; 87086; 87077; 87186; 87502; 71045; G0378 ×2; J0696 ×2